=== PATIENT | male | born 1965 | race African-American/Black ===

== ENCOUNTER 2022-08-15 22:18 | Observation (INO) | payer OTHER ==
[2022-08-16 00:42] VITALS: BMI 19.0
[2022-08-16] MEDS ORDERED: Dicyclomine 20 MG/2 ML VIAL IM SCH (02:15)
[2022-08-16] MEDS ORDERED: Polyethylene Glycol 3350 17 GM Packet PO SCH (02:15)
[2022-08-16] MEDS ORDERED: Dicyclomine 20 MG TAB PO SCH (02:45)
[2022-08-16 05:08] LABS: #Eosinphils 0.1 thou/uL (0.0-0.7); #Lymphocytes 2.6 thou/uL (1.20-3.40); #Monocytes 0.3 thou/uL (0.11-0.59); #Neutrophils 6.6 thou/uL (1.40-6.50); %Basophils 0.3 % (0.0-1.0); %Eosinophils 0.5 % (0.0-10.0); %Lymphocytes 26.7 % (21.0-51.0); %Monocytes 3.2 % (0.0-10.0); %Neutrophils 69.3 % (42.0-75.0); Hemoglobin 11.3 g/dL (14.0-18.0); Mean Corpuscular HGB CONC 32.9 g/dL (32.0-36.0); Mean Corpuscular Hemoglobin 34.3 pg (27.0-31.0); Mean Platelet Volume 9.5 fL (7.4-10.4); Platelet Count 210 10x3/uL (130-400); RBC Distribution Width 13.2 % (11.5-14.5); White Blood Cell (WBC) Count 9.6 10x3/uL (4.8-10.8)
[2022-08-16 05:35] LABS: Anion Gap 16 mmol/L (10-20); BUN (Urea Nitrogen) 55 mg/dL (8.4-25.7); Calc. Creatinine Clearance 27 mL/min (70-130); Carbon Dioxide 26 mmol/L (22-29); Chloride 101 mmol/L (98-107); Estimated GFR 32; Glucose 142 mg/dL (70-105); Potassium 3.7 mmol/L (3.5-5.1); Sodium 139 mmol/L (136-145)
[2022-08-16] MEDS ORDERED: Levothyroxine Sodium 75 MCG TAB PO SCH (06:00)
[2022-08-16 06:38] LABS: Troponin I 0.036 ng/mL (< 0.028)
[2022-08-16] MEDS ORDERED: Torsemide 20 MG TAB PO SCH (09:00)
[2022-08-16] MEDS ORDERED: Carvedilol 6.25 MG TAB PO SCH (09:00)
[2022-08-16 12:54] VITALS: BP 126/58; TEMP 97.7
[2022-08-17] MEDS ORDERED: Polyethylene Glycol 3350 17 GM Packet PO SCH (09:00)
[2022-08-19] MEDS ORDERED: FLU VACC QS2022-23(6MOS UP)/PF 60 MCG/0.5 ML SYRINGE IM ONE (02:45)
== END 2022-08-16 15:45 | disposition home or self-care (01) ==
LOC: 2SW 22:18
PROVIDERS: ADMIT Student in an Organized Health Care Education/Training Program; ATTEND Student in an Organized Health Care Education/Training Program
DX: R77.8 Other specified abnormalities of plasma proteins (principal); I13.0 Hypertensive heart and chronic kidney disease with heart failure and stage 1 through stage 4 chronic kidney disease, or unspecified chronic kidney disease; N18.4 Chronic kidney disease, stage 4 (severe); I50.20 Unspecified systolic (congestive) heart failure; D63.1 Anemia in chronic kidney disease; R10.32 Left lower quadrant pain; I25.10 Atherosclerotic heart disease of native coronary artery without angina pectoris; E78.5 Hyperlipidemia, unspecified; E89.0 Postprocedural hypothyroidism; F17.220 Nicotine dependence, chewing tobacco, uncomplicated; R10.9 Unspecified abdominal pain; I45.4 Nonspecific intraventricular block; Z91.14 Patient's other noncompliance with medication regimen; Z79.82 Long term (current) use of aspirin; Z79.890 Hormone replacement therapy; Z79.899 Other long term (current) drug therapy; Z95.810 Presence of automatic (implantable) cardiac defibrillator
CPT/HCPCS: 36415; 80048; 84484; 85025; 93005; 93010; 96372; G0378